=== PATIENT | male | born 1980 | race Caucasian/White ===

== ENCOUNTER 2018-10-08 09:16 | Emergency (ER) | payer BC ==
[2018-10-08 10:05] LABS: CHLORIDE,CL 103 mEq/L (98-106); SODIUM,NA 139 mEq/L (136-145)
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
== END 2018-10-08 10:50 | disposition home or self-care (01) ==
LOC: CC.ED 09:16
DX: R07.89 Other chest pain (principal); F17.210 Nicotine dependence, cigarettes, uncomplicated; F41.9 Anxiety disorder, unspecified; E11.9 Type 2 diabetes mellitus without complications; Z79.899 Other long term (current) drug therapy; Z88.1 Allergy status to other antibiotic agents
CPT/HCPCS: 36415; 71046; 80048; 81001; 82550; 83615; 84484; 85025; 85379; 85610; 93005; 99285-25